=== PATIENT | male | born 1930 | race Caucasian/White ===

== ENCOUNTER → 2018-05-01 | Outpatient (CLI) | payer OTHER ==
[~2018-05-01] MED LIST: ACCUPRIL; ACCUPRIL40 MG PO; ASPIRIN EC81 M1 PO; ASPIRIN325 PO; ATORVASTATIN CA40 MG PO; BENADRYL ALLERG25 MG PO; CENTRUM SILVER1 EAC4 PO; FISH OIL 1,001000 M1 PO; HYDROCHLOROTHIA25 M1; HYDROCHLOROTHIA25 M1 PO; ISOSORBIDE MONO30 M1 PO; KEFLEX500 MG PO; MEDROLDOSEPACK PO; MIRALAX17 GM PO; NEXIUM40 MG; NEXIUM40 MG PO; NITROGLYCERIN0.4 MG PO; NORCO 5-325 TA1 EACH PO; PEPCID AC20 M1 PO; PLAVIX 75 MG TA75 M1 PO; PLAVIX 75 MG TA75 MG; RANEXA500 MG PO; TOPROL XL50 MG; TOPROL XL50 MG PO; TRAMADOL 50 MG50 MG PO; VICODIN; VYTORIN 10-401 EACH; VYTORIN 10-401 EACH PO
[2018-05-01 09:49] LABS: CREATININE 1.1 mg/dL (0.7-1.3)
== END ==
LOC: CAT 09:12
PROVIDERS: Surgery
DX: I77.811 Abdominal aortic ectasia (principal); K40.90 Unilateral inguinal hernia, without obstruction or gangrene, not specified as recurrent; N40.2 Nodular prostate without lower urinary tract symptoms